=== PATIENT | male | born 1955 | race African-American/Black ===

== ENCOUNTER → 2016-08-24 | Outpatient (CLI) | payer MEDICARE, OTHER ==
--- NOTE | 2016-08-24 13:37 | RADIOLOGY REPORT (SQ) ---
EXAM DESCRIPTION: CT SOFT TISSUE NECK WITH COMPLETED DATE/TIME: 08/24/2016 8:47 am REASON FOR STUDY: SIALOADENITIS, UNSPECIFIED (K11.20) K11.20 SIALOADENITIS, UNSPECIFIED COMPARISON: CT soft tissue neck 05/07/2014 CT facial soft tissues 06/22/2008 TECHNIQUE: Uncontrasted CT was performed to specifically evaluate the parotid and submandibular glan ds for salivary calculi. Post IV contrasted scanning from skull base through lung apices with review of bone, soft tissue and lung windows. Reconstructed coronal and sagittal MPR images reviewed. All images stored on PACS. All CT scanners at this facility use dose modulation, iterative reconstruction, and/or weight based d osing when appropriate to reduce radiation dose to as low as reasonably achievable (ALARA). [facility]: Dose Right [facility]: CareDose [facility]: Dose Right [facility]: Teradose 4D [facility]: [employer] CONTRAST TYPE AND DOSE: 75mL Isovue 370- low osmolar. RENAL FUNCTION: Creatinine 0.9 RADIATION DOSE: 43.97 mGy. LIMITATIONS: Streak artifact from metallic dental work FINDINGS: SKULL BASE: Inferior brain parenchyma included in the field of view is grossly unremarkabl e. There is a punctate calcification at the left middle cerebral artery trifurcation which is simila r compared to studies dating back to 2008. This could represent atherosclerotic calcification. A th rombosed calcified aneurysm could not entirely be excluded. Consider tulalip Smart MRA exam for foll owup. MAJOR SALIVARY GLANDS: On the non contrasted images through the parotid and submandibular glands, no salivary stones are identified. On the post contrasted images, no well-circumscribed salivary gland masses are identified. No dilated ducts. Sublingual glands are not well seen. LYMPHADENOPATHY: No adenopathy. MUCOSAL MASSES OR ASYMMETRY: No mucosal masses or asymmetry. LARYNX/CORDS: No abnormal findings. VASCULAR STRUCTURES: The major vessels are patent. LUNG APICES: Clear. BONES: Multilevel degenerative changes in the cervical spine with disc space loss of height, posterio r bony spurring, ossification of the posterior longitudinal ligament, and bilateral facet hypertrophy . There is high-grade left foraminal narrowing at C4-5 and moderate bilateral foraminal narrowing at C5-6 and C6-7. THYROID: Normal size. No masses. PARANASAL SINUSES: Clear. OTHER: Results discussed with . IMPRESSION: No salivary stones. Submandibular glands are symmetric in size, shape, with normal contrast enhancement bilaterally. TECHNICAL DOCUMENTATION: JOB ID: [id number] Quality ID # [id number]: Final reports with documentation of one or more dose reduction techniques (e.g., Au tomated exposure control, adjustment of the mA and/or kV according to patient size, use of iterative reconstruction technique) 2010 [employer]- All Rights Reserved
== END ==
LOC: RAD 07:34
PROVIDERS: ATTEND Otolaryngology
DX: K11.20 Sialoadenitis, unspecified (principal)
CPT/HCPCS: 70491; 82565

== ENCOUNTER → 2016-08-25 | Outpatient (CLI) | payer MEDICARE, OTHER ==
--- NOTE | 2016-08-25 13:49 | RADIOLOGY REPORT (SQ) ---
EXAM DESCRIPTION: CT SOFT TISSUE NECK WITH COMPLETED DATE/TIME: 08/25/2016 11:21 am REASON FOR STUDY: SIALOADENITIS, UNSPECIFIED K11.20 SIALOADENITIS, UNSPECIFIED COMPARISON: CT soft tissue neck without and with contrast 08/24/2016 CT soft tissue neck with contrast 05/07/2014 CT sinuses 06/22/2008 TECHNIQUE: Patient has intermittent swelling of the right submandibular gland. Study was performed to evaluate the right submandibular duct, after contrast injection into the right submandibular duct through a 27 Bulgarian sialogram catheter. Patient was injected with 0.4 mL of a mixture of 2/3 saline, 1/3 Omnipaque [address]. Postmyelogram injection CT was performed of the right submandibular gland, with review of bone, soft tissue and lung windows. Reconstructed coronal and sagittal MPR images reviewed. All images stored on PACS. All CT scanners at this facility use dose modulation, iterative reconstruction, and/or weight based d osing when appropriate to reduce radiation dose to as low as reasonably achievable (ALARA). [facility]: Dose Right [facility]: CareDose [facility]: Dose Right [facility]: Teradose 4D [facility]: [employer] CONTRAST TYPE AND DOSE: No IV contrast. 0.4 mL of dilute Omnipaque 300 injected directly into the r ight submandibular duct RENAL FUNCTION: Creatinine 0.9 RADIATION DOSE: 39.36 mGy. LIMITATIONS: None. FINDINGS: Initial injection of contrast was insufficient to distended duct. A 2nd injection was performed with CT immediately following, this distended the duct well from the or ifice through the floor of mouth and back into the hilum of the right sub mandibular gland. About 1 cm from the orifice of the right submandibular duct, a web-like narrowing is present, with a short se gment focal stricture. There remainder of the duct in the floor of mouth is otherwise unremarkable. At the junction of the submandibular duct and the gland, there is a 2nd 50% stricture, best shown on sagittal reconstruction images 27 through 31, marked with an arrow on sagittal image 29. This strict ure at the junction of the duct gland 5 to 6 cm from the duct orifice into the floor of mouth. There is mild ectasia of the duct branches within the gland itself. 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 TECHNICAL DOCUMENTATION: JOB ID: [id number] Quality ID # [id number]: Final reports with documentation of one or more dose reduction techniques (e.g., Au tomated exposure control, adjustment of the mA and/or kV according to patient size, use of iterative reconstruction technique) 2010 [employer]- All Rights Reserved
== END ==
LOC: RAD 09:36
PROVIDERS: ATTEND Otolaryngology
DX: K11.20 Sialoadenitis, unspecified (principal)
CPT/HCPCS: 42550; 70491

== ENCOUNTER → 2019-03-20 | Day surgery (SDC) | payer MEDICARE, OTHER ==
[~2019-03-20] MED LIST: BUPIVACAINE HCL 0.5 % INJ/PF 30 ML SDV ONE; LIDOCAINE 1% INJ-PF (10 MG/ML) 30 ML SDV ONE
--- NOTE | 2019-03-20 11:19 | Operative Report ---
PREOPERATIVE DIAGNOSIS: Spondylolisis without myopathy or radiculopathy M47.818// Lumbar Sacral Spondylolisis without myopathy or radiculopathy M47.817 POSTOPERATIVE DIAGNOSIS:Spondylolisis without myopathy or radiculopathy M47.818// Lumbar Sacral Spondylolisis without myopathy or radiculopathy M47.817 PROCEDURE: 1. Radiofrequency Ablation of [] L5 dorsal Ramus 2. Sacroiliac Joint Ablation - Lateral Branches of left S1, S2, S3 DATE OF PROCEDURE: March 20, 2019 ANESTHESIA: Local COMPLICATIONS: None CONSENT: A full description of the procedure was provided including benefits as well as possible complications. All questions were answered and informed consent was given and signed. ASA guidelines for fasting were verified prior to sedation. PROCEDURE IN DETAIL The patient was brought into the fluoroscopy suite and carefully assisted into the prone position on the fluoroscopy table and allowed to adjust to a position of comfort. A grounding pad was placed on the right thigh. The low back and buttocks were widely prepped with a chloraprep solution, allowed to air dry and draped in standard sterile surgical fashion. Local anesthesia was provided by 12 mL of 1 % lidocaine delivered with a 25 g needle. PROCEDURE #1: Radiofrequency Ablation of Dorsal Ramus of left L5. A 17g 75 mm radiofrequency introducer needle was placed to the planned anatomic target, guided with intermittent fluoroscopy with a perpendicular approach, to terminally place at the left sacral ala. The stylets were removed and the radiofrequency probes with a 4mm active tip were then inserted. Needle tip position of the probes were verified in the AP, oblique, and lateral views. At each site, the medial branch nerve was stimulated at 2Hz to a maximum of 1-2vol ts determined to finalize safe needle and electrode placement. The patient was awake and responsive during this portion of the procedure. Each target was anesthetized with 2mL of 2 % Sensorcaine anesthesia for lesioning and then each target was lesioned at 80 degrees Celsius for 2 minutes and 30 seconds. Tissue impedences were noted to be between 250 and 500 Ohms. PROCEDURE #2: Radiofrequency Ablation of left S1, S2, S3 Lateral Branches Using the AP fluoroscopic view for visualization of the lateral PSFA as defined by the pre-placed 27-gauge Quincke needles, appropriate skin starting positions were defined. Using the PSFA as a "clock-face", the positions were: S1; left = 1 and 5 oclock S2; left = 1 and 5 oclock S3; left = 3 oclock Using fluoroscopic guidance, a 17g introducer needle was inserted sequentially onto the target positions described above until the introducer tip touched the bony surface of the sacrum. The stylet was withdrawn from the introducer and the radiofrequency probe with a 4 mm active tip was fully inserted into the introducer. A lateral view was obtained for standard reference. At each of the targets, needle placement was verified with the use of multi-planar fluoroscopy. The needle tip position was approximately 7 - 10mm lateral to the PSFA as determined by using an Epsilon ruler. At each site, the lateral branch nerve was stimulated at 2 Hz to a maximum of 1- 2 volts determined to finalize safe needle and electrode placement. The patient was awake and responsive during this portion of the procedure. Each target was anesthetized with 2 mL of 2 % Sensorcaine anesthesia for lesioning and then each target was lesioned at 80 degrees Celsius for 2 minutes and 30 seconds. Tissue impedences were noted to be between 250- 500 Ohms. At the conclusion of the l esioning the needles were removed and bandages placed over the needle placement sites and the patient returned to the supine position on a stretcher and transported to the recovery room without hemodynamic, neurologic, or allergic reactions. Fluoroscopic images were printed for hard copy recording and digitally archived. FLUOROSCOPIC INTERPRETATION: Appropriate epidurogram obtained. Appropriate le sioning of the 10 targets noted. POST PROCEDURE EVALUATION: The patient was comfortable in the recovery room. The patient is aware that pain may worsen before remitting and 4 6 weeks may be required prior to the onset of pain relief. IMPRESSION: 1. Technically successful sacral lateral branch, lumbar dorsal ramus for denervation from L5-S3 on the left without complication. 2. RTC in 2 weeks. 3. Estimated Blood Loss: None 4. Fluoroscopy time: 30 seconds
== END ==
LOC: RAD 10:40
PROVIDERS: ATTEND Family Medicine
DX: M47.817 Spondylosis without myelopathy or radiculopathy, lumbosacral region (principal)
CPT/HCPCS: 64635; 64640 ×3; J3490 ×2